=== PATIENT | female | born 1970 | race Caucasian/White ===

== ENCOUNTER → 2023-09-21 16:53 | Outpatient (REF) | payer OTHER, SELFPAY | LOC: WDC 16:53 | PROVIDERS: ATTENDING PHYSICIAN Obstetrics & Gynecology; FAMILY PHYSICIAN Family Medicine | DX: Z12.31 Encounter for screening mammogram for malignant neoplasm of breast (principal) | CPT/HCPCS: 77063; 77067 ==

== ENCOUNTER → 2024-10-04 07:59 | Outpatient (REF) | payer OTHER, SELFPAY | LOC: WDC 07:59 | PROVIDERS: ATTENDING PHYSICIAN Obstetrics & Gynecology | DX: N92.4 Excessive bleeding in the premenopausal period (principal) | CPT/HCPCS: 76830; 76856 ==